=== PATIENT | male | born 1960 | race Caucasian/White ===

== ENCOUNTER 2017-09-13 23:44 | Observation (INO) | payer OTHER ==
[2017-09-13] MEDS ORDERED: NS 1,000 ML IV ONE (23:54)
[2017-09-13] MEDS ORDERED: FAMOTIDINE 20 MG/2 ML SDV IVP ONE (23:54)
[2017-09-13] MEDS ORDERED: methylPREDNISolone SOD SUCC 125 MG/2 ML VIAL IVP ONE (23:54)
--- NOTE | 2017-09-13 23:58 | EDPHY ---
H & P Stated Complaint: lip swelling HPI/ROS: HPI CHIEF COMPLAINT: Upper and lower lip swelling HISTORY OF PRESENT ILLNESS: This patient is a 56-year-old alcoholic he is currently residing at [facility] for physical therapy due to balance problems and generalized weakness and muscle wasting. He was recently brought to [facility] after he had a fall at home while intoxicated with alcohol he states that he stayed 4 days in the hospital went through alcohol withdrawal however this led him to be globally weak and he was then sent to [facility] for rehab. He presents emergency room tonight by ambulance for lip swelling that started 3 hr ago. It has progressively gotten worse. He denies any trouble swallowing or breathing. He denies tongue swelling. Denies any significant pain. He has never had this before. Denies rash or itchiness. Patient is on lisinopril. He has never had angioedema before. Upon arrival to the emergency room is hemodynamically stable no acute distress. Speaking to me coherently. He has upper and lower lip swelling diffusely. Symmetrical. His upper lipase more swollen than his lower lip. They are edematous. He has no rash. He denies chest pain or shortness of breath. Denies trouble swallowing. He is not drooling. There is no change in phonation. Past Medical History: Hypertension, hyperlipidemia, alcoholism, daily alcohol use last drink was Saturday. Past Surgical History: No recent surgery Social History: Resides in a private residence, currently in [facility] for rehab, last drink was Saturday. Alcoholic. Denies illicit drugs tobacco. Family History: Noncontributory ROS REVIEW OF SYSTEMS: A comprehensive 10 point review of systems is otherwise negative aside from elements mentioned in the history of present illness. Exam Constitutional appears well nontoxic, triage nursing summary reviewed, vital signs reviewed, awake/alert. Eyes normal conjunctivae and sclera, EOMI, PERRLA. HENT oropharynx: No posterior pharynx swelling, no tongue swelling, no signs of Miguel Angel's, no stridor, no drooling, no inflammation or swelling of the tongue , upper and lower lip are edematous, the upper lip is more swollen than lower lip. moist mucus membranes, no epistaxis, neck supple/ no meningismus, no raccoon eyes. Respiratory clear to auscultation bilaterally, normal breath sounds, no respiratory distress, no wheezing. Cardiovascular rate normal, regular rhythm, no murmur, no edema, distal pulses normal. Gastrointestinal soft, non-tender, no rebound, no guarding, normal bowel sounds, no distension, no pulsatile mass. Genitourinary no CVA tenderness. Musculoskeletal no midline vertebral tenderness, full range of motion, no calf swelling, no tenderness of extremities, no meningismus, good pulses, neurovascularly intact. Skin pink, warm, & dry, no rash, skin atraumatic. Neurologic awake, alert and oriented x 3, AAOx3, moves all 4 extremities equally, motor intact, sensory intact, CN II-XII intact, normal cerebellar, normal vision, normal speech. Psychiatric normal mood/affect. Heme/Lymph/Immune no lymphadenopathy. Differential Diagnosis: Includes but is not limited to in a particular order angioedema, allergic reaction, Amaury inhibitor induced angioedema Medical Decision Making:Plan for this patient IV establishment full monitor, IV Solu-Medrol, IV Benadryl, IV Pepcid, discussed at length about not taking lisinopril as this is an AMAURY-inhibitor may be causing his angioedema. We will closely monitor for progression of symptoms. It has been going on for 3 hr. Most likely admit overnight for observation. Re-evaluation: 0204: Given extent of upper and lower lip swelling, will admit to the hospitalist service for angioedema. Close monitoring. He has not had any progression here in the emergency room. No airway involvement. No trouble swallowing. No tongue swelling. He is comfortable this time. Plan for admission the hospital service for angioedema close monitoring. Source: Patient, EMS - Personal History Current Tetanus/Diphtheria Vaccine: Yes Current Tetanus Diphtheria and Acellular Pertussis (TDAP): Yes - Medical/Surgical History Hx Asthma: No Hx Chronic Respiratory Disease: No Hx Diabetes: No Hx Cardiac Disease: Yes Hx Renal Disease: No Hx Cirrhosis: No Hx Alcoholism: Yes Hx HIV/AIDS: No Hx Splenectomy or Spleen Trauma: No Other PMH: HTN, high cholestrol - Social History Smoking Status: Never smoked Constitutional: Initial Vital Signs Temperature (C) 36.7 C 09/13/17 23:51 Heart Rate 109 H 09/13/17 23:51 Respiratory Rate 20 09/13/17 23:51 Blood Pressure 154/96 H 09/13/17 23:51 O2 Sat (%) 97 09/13/17 23:51 O2 Delivery Mode Room Air Allergies/Adverse Reactions: Penicillins Allergy (Verified 09/14/17 09:54) Hives Home Medications: Medication Instructions Recorded Acetaminophen [Tylenol 325mg (*)] 325 mg PO Q6 PRN 09/13/17 Atorvastatin Calcium [Lipitor 20 20 mg PO DAILY@18 09/13/17 mg (*)] Escitalopram Oxalate [Lexapro] 20 mg PO DAILY 09/13/17 LORazepam [Lorazepam] 1 mg PO DAILY PRN 09/13/17 Lisinopril [Zestril 20 mg (*)] 20 mg PO DAILY 09/13/17 Magnesium Oxide [Magnesium] 500 mg PO BID 09/13/17 Multivitamins [Multivitamin (*)] 1 each PO DAILY 09/13/17 Omeprazole 40 mg PO BID 09/13/17 Vitamin B Complex [B Complex] 1 each PO DAILY 09/13/17 amLODIPine BESYLATE [Norvasc 5 mg 5 mg PO DAILY 09/13/17 (*)] Ascorbic Acid [Vitamin C 500 mg 500 mg PO DAILY 09/14/17 (*)] Fenofibrate [Tricor 145 mg (*)] 145 mg PO DAILY@18 09/14/17 Gabapentin [Neurontin 300 MG (*)] 300 mg PO TID 09/14/17 Ibuprofen [Motrin (*)] 400 mg PO Q4-6PRN PRN 09/14/17 Metoprolol Succinate Xr [Toprol Xl 25 mg PO DAILY 09/14/17 25 mg (*)] Harvey-3 Fatty Acids [Fish Oil 1000 1,000 mg PO DAILY 09/14/17 mg (*)] Promethazine HCl [Phenergan 25mg 25 mg PO Q4H PRN 09/14/17 (*)] Thiamine HCl [Vitamin B-1] 50 mg PO DAILY 09/14/17 Medical Decision Making - Data Points Laboratory Results: Laboratory Results 09/13/17 23:59 09/13/17 23:59 Medications Given: Atorvastatin Calcium (Lipitor) 20 mg PO DAILY@18 [facility] Stop: 03/13/18 17:59 Last Admin: 09/14/17 17:16 Dose: 20 mg Fenofibrate (Tricor) 145 mg PO DAILY@18 [facility] Stop: 03/13/18 17:59 Last Admin: 09/14/17 17:16 Dose: 145 mg Gabapentin (Neurontin) 300 mg PO TID [facility] Stop: 03/13/18 15:59 Last Admin: 09/14/17 21:07 Dose: 300 mg Methylprednisolone Sodium Succinate (Solu-Medrol) 60 mg IVP BID [facility] Stop: 03/13/18 20:59 Last Admin: 09/14/17 21:07 Dose: 60 mg Miscellaneous Medication (Magnesium Oxide [Magnesium]) 500 mg PO BID [facility] Stop: 03/13/18 20:59 Last Admin: 09/14/17 21:09 Dose: Not Given Pantoprazole Sodium (Protonix) 40 mg PO BID [facility] Stop: 03/13/18 20:59 Last Admin: 09/14/17 21:07 Dose: 40 mg Discontinued Medications Cetirizine HCl (Zyrtec) 10 mg PO ONCE ONE Stop: 09/14/17 06:01 Last Admin: 09/14/17 05:19 Dose: 10 mg Diphenhydramine HCl (Benadryl Injection) 25 mg IVP EDNOW ONE Stop: 09/13/17 23:55 Last Admin: 09/14/17 00:04 Dose: 25 mg Famotidine (Pepcid) 20 mg IVP EDNOW ONE Stop: 09/13/17 23:55 Last Admin: 09/14/17 00:09 Dose: 20 mg Sodium Chloride (Ns) 1,000 mls @ 0 mls/hr IV ONCE ONE PRN Reason: Wide Open Stop: 09/13/17 23:55 Last Admin: 09/14/17 00:04 Dose: 1,000 mls Magnesium Sulfate (Magnesium Sulf 2 Gm (Premix)) 50 mls @ 50 mls/hr IV ONCE ONE Stop: 09/14/17 13:54 Last Admin: 09/14/17 13:41 Dose: 50 mls Methylprednisolone Sodium Succinate (Solu-Medrol) 125 mg IVP EDNOW ONE Stop: 09/13/17 23:55 Last Admin: 09/14/17 00:06 Dose: 125 mg Methylprednisolone Sodium Succinate (Solu-Medrol) 60 mg IVP ONCE ONE Stop: 09/14/17 06:01 Last Admin: 09/14/17 05:19 Dose: 60 mg Departure - Departure Disposition: [facility] Acute Clinical Impression: Angioedema Qualifiers: Encounter type: initial encounter Qualified Code(s): T78.3XXA - Angioneurotic edema, initial encounter Condition: Fair
[2017-09-14 00:12] LABS: % IMMATURE GRANULYOCYTES 0.6 % (0.0-1.1); ABSOLUTE IMMATURE GRANULOCYTES 0.03 10^3/uL (0.00-0.10); ADD DIFF? NO; ADD MORPH? NO; ADD SCAN? NO; ATYPICAL LYMPHOCYTE FLAG 30 (0-99); FRAGMENT RBC FLAG 0 (0-99); HEMATOCRIT 39.1 % (40.0-51.0); HEMOGLOBIN 13.5 g/dL (13.7-17.5); LEFT SHIFT FLG 0 (0-99); LIPEMIA HEMOLYSIS FLAG 90 (0-99); MEAN CELL HEMOGLOBIN CONCENTR. 34.5 g/dL (32.4-36.7); MEAN CELL VOLUME 95.6 fL (81.5-99.8); MEAN PLATELET VOLUME 10.9 fL (8.7-11.7); PLATELET CLUMPS FLAG 20 (0-99); PLATELET COUNT 183 10^3/uL (150-400); RED BLOOD CELL COUNT 4.09 10^6/uL (4.40-6.38); RED CELL DISTRIBUTION WIDTH 15.4 % (11.5-15.2)
[2017-09-14 00:19] LABS: ANION GAP 15 mEq/L (8-16); CALCIUM 10.5 mg/dL (8.5-10.4); CARBON DIOXIDE 27 mEq/l (22-31); CHLORIDE 98 mEq/L (97-110); CREATININE 0.6 mg/dL (0.7-1.3); GLOMERULAR FILTRATION RATE > 60; GLUCOSE 157 mg/dL (70-100); POTASSIUM 3.7 mEq/L (3.5-5.2); SODIUM 140 mEq/L (134-144)
[2017-09-14] MEDS ORDERED: ONDANSETRON 4 MG/2 ML VIAL IVP PRN (00:39)
[2017-09-14] MEDS ORDERED: ONDANSETRON DISINTEGRATING 4 MG TAB PO PRN (00:39)
[2017-09-14] MEDS ORDERED: ACETAMINOPHEN 325 MG TAB PO PRN (00:39)
--- NOTE | 2017-09-14 01:05 | PDGENHP ---
History and Physical - Chief Complaint Facial swelling - History of Present Illness 56 yo M w/ HTN, HLD, and hx of ETOH abuse presents with facial swelling. Patient noticed fairly acute facial swelling starting on the evening prior to admission. Patient denies tongue or throat swelling as well as any difficulty breathing or swallowing. Of note, he is on lisinopril for HTN. He states this has happened a few times in a milder fashion over the last year or two and usually resolved within 24 hours. He is unsure if this started to happen before or after taking lisinopril. He is not aware of any other allergies aside from penicillin. He ate sloppy joes for dinner and does not think he ate any food he does not usually eat. He denies any family hx of angioedema. History Information - Allergies/Home Medication List Allergies/Adverse Reactions: Penicillins Allergy (Verified 09/13/17 23:55) Home Medications: Acetaminophen 09/13/17 [Last Taken Unknown] Amlodipine Besylate 09/13/17 [Last Taken Unknown] Atorvastatin Calcium 09/13/17 [Last Taken Unknown] B Complex 09/13/17 [Last Taken Unknown] Ibuprofen 09/13/17 [Last Taken Unknown] LORazepam [Lorazepam] 09/13/17 [Last Taken Unknown] Lexapro 09/13/17 [Last Taken Unknown] Lisinopril 09/13/17 [Last Taken Unknown] Magnesium 09/13/17 [Last Taken Unknown] Ntjeb-Crvrwtv-Dyrhsrko Tablet 09/13/17 [Last Taken Unknown] Monon-3 Fatty Acids/Fish Oil [Monon 3 1,000 mg Softgel] 09/13/17 [Last Taken Unknown] Omeprazole 09/13/17 [Last Taken Unknown] Promethazine HCl 09/13/17 [Last Taken Unknown] Thiamine HCl 09/13/17 [Last Taken Unknown] I have personally reviewed and updated: family history, medical history - Past Medical History hypertension, hyperlipidemia - Family History Positive for: hypertension Additional family history: Denies family hx of angioedema - Social History Smoking Status: Never smoked Review of Systems Review of Systems: ROS: 10pt was reviewed & negative except for what was stated in HPI & below Physical Exam Physical Exam: Temp Pulse Resp BP Pulse Ox 36.7 C 109 H 20 154/96 H 97 09/13/17 23:51 09/13/17 23:51 09/13/17 23:51 12/08/17 23:51 09/13/17 23:51 Constitutional: no apparent distress, not in pain Eyes: PERRL, EOMI Ears, Nose, Mouth, Throat: other (Significant swelling involving upper and lower lips as well as lower face L>R; no tongue or pharyngeal swelling noted) Cardiovascular: regular rate and rhythym, no murmur, rub, or gallop Respiratory: no respiratory distress, clear to auscultation, other (No stridor) Skin: warm, normal color Musculoskeletal: full muscle strength, no muscle tenderness Neurologic: AAOx3, CN II-XII Intact, other (Tremor noted with activity, not present at rest) Lab Data & Imaging Review 09/13/17 23:59 09/13/17 23:59 WBC 5.04 10^3/uL (3.80-9.50) 09/13/17 23:59 RBC 4.09 10^6/uL (4.40-6.38) L 09/13/17 23:59 Hgb 13.5 g/dL (13.7-17.5) L 09/13/17 23:59 Hct 39.1 % (40.0-51.0) L 09/13/17 23:59 MCV 95.6 fL (81.5-99.8) 09/13/17 23:59 MCH 33.0 pg (27.9-34.1) 09/13/17 23:59 MCHC 34.5 g/dL (32.4-36.7) 09/13/17 23:59 RDW 15.4 % (11.5-15.2) H 09/13/17 23:59 Plt Count 183 10^3/uL (150-400) 09/13/17 23:59 MPV 10.9 fL (8.7-11.7) 09/13/17 23:59 Neut % (Auto) 43.8 % (39.3-74.2) 09/13/17 23:59 Lymph % (Auto) 36.3 % (15.0-45.0) 09/13/17 23:59 Fajardo % (Auto) 16.7 % (4.5-13.0) H 09/13/17 23:59 Eos % (Auto) 1.8 % (0.6-7.6) 09/13/17 23:59 Baso % (Auto) 0.8 % (0.3-1.7) 09/13/17 23:59 Nucleat RBC Rel Count 0.0 % (0.0-0.2) 09/13/17 23:59 Absolute Neuts (auto) 2.21 10^3/uL (1.70-6.50) 09/13/17 23:59 Absolute Lymphs (auto) 1.83 10^3/uL (1.00-3.00) 09/13/17 23:59 Absolute Monos (auto) 0.84 10^3/uL (0.30-0.80) H 09/13/17 23:59 Absolute Eos (auto) 0.09 10^3/uL (0.03-0.40) 09/13/17 23:59 Absolute Basos (auto) 0.04 10^3/uL (0.02-0.10) 09/13/17 23:59 Absolute Nucleated RBC 0.00 10^3/uL (0-0.01) 09/13/17 23:59 Immature Gran % 0.6 % (0.0-1.1) 09/13/17 23:59 Immature Gran # 0.03 10^3/uL (0.00-0.10) 09/13/17 23:59 Sodium 140 mEq/L (134-144) 09/13/17 23:59 Potassium 3.7 mEq/L (3.5-5.2) 09/13/17 23:59 Chloride 98 mEq/L (97-110) 09/13/17 23:59 Carbon Dioxide 27 mEq/l (22-31) 09/13/17 23:59 Anion Gap 15 mEq/L (8-16) 09/13/17 23:59 BUN 15 mg/dL (7-23) 09/13/17 23:59 Creatinine 0.6 mg/dL (0.7-1.3) L 09/13/17 23:59 Estimated GFR > 60 09/13/17 23:59 Glucose 157 mg/dL (70-100) H 09/13/17 23:59 Calcium 10.5 mg/dL (8.5-10.4) H 09/13/17 23:59 Assessment & Plan Assessment: 56 yo M w/ HTN, HLD, and hx of ETOH abuse presents w/ angioedema. Plan: 1. Angioedema - Possibly 2/2 SANDRA-I, states this has happened a few times before but he is unsure if episode began after or before he began to take Lisinopril. Swelling is fairly significant currently but there does not appear to be any tongue or pharyngeal involvement at this time. He is denying SOB or difficulty swallowing; VSS. He denies family hx of angioedema. - S/p methylprednisolone, diphenhydramine, and famotidine in ED - Will repeat methylprednisolone (60 mg IV) and anti-histamine (Cetirizine) at 6 AM - Admit for monitoring of symptoms - Discontinue SANDRA-I, added to allergy list 2. HTN - On metoprolol, amlodipine, and lisinopril as outpatient. - Discontinue SANDRA-I as above 3. HLD - On statin 4. Hx ETOH abuse - Recently admitted at [facility] after an ETOH related fall. He went through withdrawal there and was discharged to [facility] for rehab. His last drink was last Saturday (6 days ago). No signs of withdrawal currently. 5. Tremor - Not present at rest; differential is broad and includes action tremor, essential tremor, cerebellar tremor (2/2 ill effects of ETOH?). Not consistent with ETOH w/d tremor. - Recommended outpatient Neurology follow-up Diet - Regular Code - Full Ppx - SCDs Dispo - Admit to observation status
[2017-09-14] MEDS ORDERED: D5W IV ONE (06:00)
[2017-09-14] MEDS ORDERED: METHYLPREDNISOLONE SOD SUCC IV ONE (06:00)
[2017-09-14] MEDS ORDERED: CETIRIZINE 10 MG TAB PO ONE (06:00)
[2017-09-14] MEDS ORDERED: methylPREDNISolone SOD SUCC 40 MG/ML VIAL IVP ONE (06:00)
[2017-09-14 06:01] LABS: ABSOLUTE IMMATURE GRANULOCYTES 0.03 10^3/uL (0.00-0.10); ADD DIFF? NO; ADD MORPH? NO; ADD SCAN? NO; ATYPICAL LYMPHOCYTE FLAG 0 (0-99); FRAGMENT RBC FLAG 0 (0-99); HEMATOCRIT 38.5 % (40.0-51.0); HEMOGLOBIN 13.5 g/dL (13.7-17.5); LEFT SHIFT FLG 10 (0-99); LIPEMIA HEMOLYSIS FLAG 90 (0-99); MEAN CELL HEMOGLOBIN 33.3 pg (27.9-34.1); MEAN CELL HEMOGLOBIN CONCENTR. 35.1 g/dL (32.4-36.7); MEAN CELL VOLUME 95.1 fL (81.5-99.8); MEAN PLATELET VOLUME 11.1 fL (8.7-11.7); PLATELET CLUMPS FLAG 10 (0-99); PLATELET COUNT 183 10^3/uL (150-400); RED BLOOD CELL COUNT 4.05 10^6/uL (4.40-6.38); RED CELL DISTRIBUTION WIDTH 15.4 % (11.5-15.2)
[2017-09-14 06:12] LABS: ANION GAP 14 mEq/L (8-16); CARBON DIOXIDE 25 mEq/l (22-31); CHLORIDE 103 mEq/L (97-110); CREATININE 0.5 mg/dL (0.7-1.3); GLOMERULAR FILTRATION RATE > 60; GLUCOSE 175 mg/dL (70-100); POTASSIUM 3.8 mEq/L (3.5-5.2); SODIUM 142 mEq/L (134-144)
--- NOTE | 2017-09-14 11:37 | ASMTCMCOM ---
CM Note CM Note Notes: Spoke w/Shana at [facility], pt is a LTC resident there. Oliver dc to BM when medically stable, KADEEM w/f. DC Plan: Return to [facility] Date Signed: 09/14/2017 11:37 AM Electronically Signed By:Karla Regan RN
[2017-09-14] MEDS ORDERED: MAGNESIUM SULF 2 GM/WATER 50 ML IV ONE (12:55)
[2017-09-14] MEDS ORDERED: PROMETHAZINE HCL 25 MG TAB PO PRN (12:55)
[2017-09-14] MEDS ORDERED: LORazepam 1 MG TAB PO PRN (12:55)
[2017-09-14] MEDS: GABAPENTIN 300 MG CAP PO SCH ×2 (15:05→21:07)
--- NOTE | 2017-09-14 15:57 | HOSPPROG ---
Hospitalist Progress Note Assessment/Plan: # angioedema - still slightly persistent - will monitor overnight, cont steroids and zyrtec - stop SANDRA-I # etOH abuse - still seems to have mild w/d, but far out from last etOH - follow # hypoMg - likely d/t etOH - replete IV # htn - metop, norvasc Subjective: c/o ongoing swelling in his R lip Objective: Vital Signs Temp Pulse Resp BP Pulse Ox 37.0 C 100 18 121/86 H 96 09/14/17 11:59 09/14/17 11:59 09/14/17 11:59 09/14/17 11:59 09/14/17 11:59 Laboratory Results 09/14/17 05:28 09/14/17 05:28 09/13/17 09/14/17 09/15/17 05:59 05:59 05:59 Output Total 950 400 Balance -950 -400 ICD10 Worksheet Patient Problems: Problems Problem Status Onset Angioedema Acute
[2017-09-14] MEDS ORDERED: FENOFIBRATE 145 MG TAB PO SCH (18:00)
[2017-09-14] MEDS ORDERED: ATORVASTATIN CALCIUM 20 MG TAB PO SCH (18:00)
[2017-09-14] MEDS ORDERED: NON-FORMULARY NEW DRUG (Omeprazole [Omeprazole] 40 MG) PO SCH (21:00)
[2017-09-14] MEDS ORDERED: NON-FORMULARY NEW DRUG (Magnesium Oxide [Magnesium] 500 MG) PO SCH (21:00)
[2017-09-14] MEDS: methylPREDNISolone SOD SUCC 125 MG/2 ML VIAL IVP SCH (21:07)
[2017-09-14] MEDS: PANTOPRAZOLE SODIUM 40 MG TAB PO SCH (21:07)
[2017-09-14] MEDS: MAGNESIUM OXIDE 500 MG PO SCH (21:09)
[2017-09-15 05:08] VITALS: RESP 16
[2017-09-15] MEDS ORDERED: MAGNESIUM SULF 2 GM/WATER 50 ML IV ONE (07:27)
[2017-09-15] MEDS: GABAPENTIN 300 MG CAP PO SCH (08:06)
[2017-09-15] MEDS: PANTOPRAZOLE SODIUM 40 MG TAB PO SCH (08:06)
[2017-09-15] MEDS: methylPREDNISolone SOD SUCC 125 MG/2 ML VIAL IVP SCH (08:27)
[2017-09-15] MEDS: MAGNESIUM OXIDE 500 MG PO SCH (08:28)
[2017-09-15] MEDS ORDERED: ESCITALOPRAM OXALATE 10 MG TAB PO SCH (09:00)
[2017-09-15] MEDS ORDERED: CETIRIZINE 10 MG TAB PO SCH (09:00)
[2017-09-15] MEDS ORDERED: LISINOPRIL 20 MG TAB PO SCH (09:00)
[2017-09-15] MEDS ORDERED: amLODIPine BESYLATE 5 MG TAB PO SCH (09:00)
[2017-09-15] MEDS ORDERED: NON-FORMULARY NEW DRUG (Escitalopram Oxalate [Lexapro] 20 MG) PO SCH (09:00)
[2017-09-15] MEDS ORDERED: METOPROLOL SUCCINATE XR 25 MG TAB PO SCH (09:00)
[2017-09-15] MEDS ORDERED: ASCORBIC ACID 500 MG TAB PO SCH (09:00)
[2017-09-15 11:15] VITALS: BP 114/84; PULSE 71; TEMP 98.5; O2SAT 91
--- NOTE | 2017-09-15 11:50 | PDIAF ---
- Diagnosis Diagnosis: angioedema Code Status: Full Code - Medication Management Discharge Medications: Medications to Continue on Transfer Acetaminophen [Tylenol 325mg (*)] 325 mg PO Q6 PRN 09/13/17 [Last Taken Unknown] Atorvastatin Calcium [Lipitor 20 mg (*)] 20 mg PO DAILY@18 09/13/17 [Last Taken 09/13/17] Escitalopram Oxalate [Lexapro] 20 mg PO DAILY 09/13/17 [Last Taken Unknown] LORazepam [Lorazepam] 1 mg PO DAILY PRN 09/13/17 [Last Taken Unknown] Magnesium Oxide [Magnesium] 500 mg PO BID 09/13/17 [Last Taken 09/13/17] Multivitamins [Multivitamin (*)] 1 each PO DAILY 09/13/17 [Last Taken 09/13/17] Omeprazole 40 mg PO BID 09/13/17 [Last Taken 09/13/17] Vitamin B Complex [B Complex] 1 each PO DAILY 09/13/17 [Last Taken Unknown] amLODIPine BESYLATE [Norvasc 5 mg (*)] 5 mg PO DAILY 09/13/17 [Last Taken ] Ascorbic Acid [Vitamin C 500 mg (*)] 500 mg PO DAILY 09/14/17 [Last Taken Unknown] Fenofibrate [Tricor 145 mg (*)] 145 mg PO DAILY@18 09/14/17 [Last Taken Unknown] Gabapentin [Neurontin 300 MG (*)] 300 mg PO TID 09/14/17 [Last Taken Unknown] Ibuprofen [Motrin (*)] 400 mg PO Q4-6PRN PRN 09/14/17 [Last Taken Unknown] Metoprolol Succinate Xr [Toprol Xl 25 mg (*)] 25 mg PO DAILY 09/14/17 [Last Taken 09/13/17] [place]-3 Fatty Acids [Fish Oil 1000 mg (*)] 1,000 mg PO DAILY 09/14/17 [Last Taken Unknown] Promethazine HCl [Phenergan 25mg (*)] 25 mg PO Q4H PRN 09/14/17 [Last Taken Unknown] Thiamine HCl [Vitamin B-1] 50 mg PO DAILY 09/14/17 [Last Taken Unknown] Discharge Medications: Refer to the Discharge Home Medication list for PRN reason. - Orders Services needed: Physical Therapy, Occupational Therapy Diet Recommendation: no restrictions on diet - Labs/Radiology Other Lab Name, Date and Time: Mg; weekly until normal starting 09/17/2017 - Follow Up Care Current Providers and Referrals: Patient,NotPresent [Unknown] - As per Instructions
--- NOTE | 2017-09-15 11:53 | GDS ---
[f rep st] DISCHARGE SUMMARY FINAL DIAGNOSES: 1. Angioedema in the setting of SANDRA inhibitor use. 2. Alcohol abuse, currently sober. 3. Hypomagnesemia. 4. Hypertension. HOSPITAL COURSE: A 56-year-old man admitted with lip swelling, representing angioedema. He has been on lisinopril for about a year and half. Lisinopril was held. He was given antihistamines as well as steroids. He has had significant improvement in his lip swelling. He is discharged in stable con dition with a recommendation to stop lisinopril permanently. We will continue his other antihyperten sives for now, including amlodipine and metoprolol. He is currently not hypertensive but may need to have an additional agent added. I have added lisinopril to his list of allergies. /[id number]/MODL
--- NOTE | 2017-09-15 14:25 | ASDISCHSUM ---
Discharge Information Plan Status:SNF Medically Cleared to Leave:09/14/2017 Discharge Date:09/15/2017 02:24 PM CM D/C Disposition:Residential Facility ADT D/C Disposition:Residential Facility Projected Discharge Date:09/15/2017 11:00 AM Transportation at D/C:Wheelchair Van Discharge Delay Reason: Follow-Up Date:09/15/2017 11:00 AM Discharge Slot:2 - 12:01 pm - 18:00 pm Final Diagnosis:Angioedema in setting of SANDRA inhibitor, ETOH abuse, hypomagnesemia, HTN Placement Information Referral Type:*Penitentiary/SNF Referral ID:[id number] Provider Name:[facility] Address 1:[address] Phone Number: Address 2: Fax Number: [facility]:[place] Selection Factors:Returning to Facility State:[place] Patient Contact Information Contact Name:BIRDIE Relationship: Address:[address] [employer] Work Phone: City:[facility] Phone: State/Zip Code:[place] [address] Email: Financial Information Financial Class:HMO and PPO Plans Primary Plan Desc:H[employer] [place] [employer] Primary Plan Number:[id number] Secondary Plan Desc: Secondary Plan Number: Assessment Information [facility] CM Progress Note CM Note CM Note Notes: Spoke w/Shana at [facility], pt is a LTC resident there. Oliver oconnell to BM when medically stable, KADEEM w/fDimitri OCONNELL Plan: Return to [facility] Date Signed: 09/14/2017 11:37 AM Electronically Signed By:Karla Regan RN Case Management Discharge Plan Note Case Management Discharge Discharge Order Complete? Answers: Yes Patient to Obtain Answers: Other Notes: via [facility] Medications Transportation Arranged Answers: Other Notes: Wheelchair hussein, wesley d by [facility] Transport will Pick (Date 09/15/2017 02:30 PM & Time) NAUNJEREMÍAS Complete Answers: No Notes: N/A Case Management Transport Answers: Yes Form Complete Faxed Final Orders Answers: Yes Notes: Confirmed receipt w/ Shana Agency/Facility Transfer Answers: Yes Notes: Confirmed receipt Report Printed & Faxed to w/ Shana Receiving Agency Family Notified Answers: No Notes: Pt to notify Discharge Comments Notes: Reviewed chart, spoke w/ Dr. Roldan and Gilda, RN regarding discharge plan, pt's progress. Per Dr. Roldan, pt ready to discharge back to [facility]. Call placed to Shana at [facility]. Per Shana, able to accept pt today. Transportation to be paid for and arranged by [facility]. Discharge orders and paperwork manually faxed to per Shana's request (no one at the facility able to access [employer]); confirmed receipt. [facility] Vo called report to facility . Pt to follow up as directed. No IM signed, not applicable. 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 CM avail for any further issues or concerns. Date Signed: 09/15/2017 02:25 PM Electronically Signed By:Corina Lara RN Intervention Information
== END 2017-09-15 14:24 ==
LOC: EDUNIT# → F3E 09-14 01:28
PROVIDERS: ADMIT Student in an Organized Health Care Education/Training Program; ATTEND Student in an Organized Health Care Education/Training Program
DX: T78.3XXA Angioneurotic edema, initial encounter (principal); F10.10 Alcohol abuse, uncomplicated; E83.42 Hypomagnesemia; I10 Essential (primary) hypertension
CPT/HCPCS: 96361; 96374; 96375; 99285; G0378; J1200; J2920; J2930